=== PATIENT | female | born 1955 | race Caucasian/White ===

== ENCOUNTER → 2020-12-09 15:35 | Outpatient (CLI) | payer MEDICARE, OTHER, SELFPAY ==
--- NOTE | 2020-12-09 15:37 | DI.MRI.S_ITS ---
PROCEDURE: MR HEAD/BRAIN WO/W CON INDICATIONS: Follicular cyst of the skin and subcutaneous tissu TECHNIQUE: Noncontrast axial T1 spin echo, axial T2 fast spin echo, sagittal and axial FLAIR, coronal T2 fast spin echo, axial gradient echo, axial diffusion and ADC through the brain. After the administration of contrast, axial and coronal T1 spin echo with fat saturation through the brain. COMPARISON: None. FINDINGS: Image quality: Excellent. CSF spaces: Basal cisterns are patent. No extra-axial fluid collections. Ventricles are normal in size and shape. Brain: No midline shift. No intracranial bleeds or masses. No abnormal intracranial enhancement. There is cerebral volume loss for age. There is periventricular white matter chronic small vessel ischemic change. The brainstem appears normal. Diffusion-weighted images demonstrate no acute ischemic insults. No chronic ischemic insults. Normal intravascular flow voids are present. Skull and face: A superficial scalp lesion can be seen involving the right temporal region, as on series 7, image 15 measuring 17 mm. Moderate internal enhancement can be seen. Calvarial marrow is normal in signal. Orbits appear normal. Sinuses: Sinuses and mastoids appear clear. IMPRESSION: 17 mm right temporal scalp lesion, with moderate enhancement. Intracranial study within normal limits. Dictated by: Gurmeet Sharma M.D. on 12/09/2020 at 16:14 Approved by: Gurmeet Sharma M.D. on 12/09/2020 at 16:16
== END ==
PROVIDERS: PCP Family Medicine; Referring Provider Family Medicine; Visit Provider Family Medicine
DX: R51.9 Headache, unspecified (principal); L72.9 Follicular cyst of the skin and subcutaneous tissue, unspecified
CPT/HCPCS: 70553

== ENCOUNTER → 2022-09-13 09:57 | Outpatient (CLI) | payer MEDICARE, OTHER, SELFPAY | PROVIDERS: PCP Internal Medicine; Referring Provider Internal Medicine; Visit Provider Surgery | DX: S01.00XA Unspecified open wound of scalp, initial encounter (principal); L85.9 Epidermal thickening, unspecified; L53.9 Erythematous condition, unspecified | CPT/HCPCS: 11042; 87070; 87075; 87205; 99204; 99213 ==

== ENCOUNTER → 2022-09-20 15:04 | Outpatient (CLI) | payer MEDICARE, OTHER, SELFPAY | PROVIDERS: PCP Internal Medicine; Referring Provider Internal Medicine; Visit Provider Surgery | DX: T81.30XS Disruption of wound, unspecified, sequela (principal); S01.00XA Unspecified open wound of scalp, initial encounter; L72.0 Epidermal cyst | CPT/HCPCS: 11042 ==

== ENCOUNTER → 2022-09-25 13:12 | Outpatient (CLI) | payer MEDICARE, OTHER, SELFPAY | PROVIDERS: PCP Internal Medicine; Referring Provider Internal Medicine; Visit Provider Surgery | DX: T81.30XS Disruption of wound, unspecified, sequela (principal); S01.00XA Unspecified open wound of scalp, initial encounter; L72.0 Epidermal cyst | CPT/HCPCS: 11042 ==

== ENCOUNTER → 2022-10-02 13:45 | Outpatient (CLI) | payer MEDICARE, OTHER, SELFPAY | PROVIDERS: PCP Internal Medicine; Referring Provider Internal Medicine; Visit Provider Surgery | DX: S01.00XA Unspecified open wound of scalp, initial encounter (principal); L72.0 Epidermal cyst | CPT/HCPCS: 11042 ==

== ENCOUNTER → 2022-10-16 13:54 | Outpatient (CLI) | payer MEDICARE, OTHER, SELFPAY | PROVIDERS: PCP Internal Medicine; Referring Provider Internal Medicine; Visit Provider Surgery | DX: S01.00XA Unspecified open wound of scalp, initial encounter (principal); L72.0 Epidermal cyst | CPT/HCPCS: 97597; 99212; 99213 ==

== ENCOUNTER → 2022-10-31 14:32 | Outpatient (CLI) | payer MEDICARE, OTHER, SELFPAY | PROVIDERS: PCP Internal Medicine; Referring Provider Internal Medicine; Visit Provider Surgery | DX: T81.30XS Disruption of wound, unspecified, sequela (principal); S01.80XA Unspecified open wound of other part of head, initial encounter; L72.0 Epidermal cyst | CPT/HCPCS: 97597 ==

== ENCOUNTER → 2022-11-14 15:19 | Outpatient (CLI) | payer MEDICARE, OTHER, SELFPAY | PROVIDERS: PCP Internal Medicine; Referring Provider Internal Medicine; Visit Provider Surgery | DX: T81.31XA Disruption of external operation (surgical) wound, not elsewhere classified, initial encounter (principal); S01.00XA Unspecified open wound of scalp, initial encounter; L72.0 Epidermal cyst | CPT/HCPCS: 99213 ==

== ENCOUNTER → 2022-12-05 13:15 | Outpatient (CLI) | payer MEDICARE, OTHER, SELFPAY | PROVIDERS: PCP Internal Medicine; Referring Provider Internal Medicine; Visit Provider Surgery | DX: S01.00XA Unspecified open wound of scalp, initial encounter (principal); L72.0 Epidermal cyst | CPT/HCPCS: 11042 ==

== ENCOUNTER → 2022-12-25 13:42 | Outpatient (CLI) | payer MEDICARE, OTHER, SELFPAY | PROVIDERS: PCP Internal Medicine; Referring Provider Internal Medicine; Visit Provider Surgery | DX: L72.0 Epidermal cyst (principal) | CPT/HCPCS: 99212; 99213 ==

== ENCOUNTER 2024-05-09 12:36 | Emergency (ER) | payer MEDICARE, OTHER, SELFPAY ==
[2024-05-09] VITALS (36 sets, daily range): BP systolic 110–162; BP diastolic 66–119; PULSE 52–75; RESP 14–30; TEMP 36.6; O2SAT 94–100; BMI 25.5
--- NOTE | 2024-05-09 13:02 | DI.RAD.S_ITS ---
PROCEDURE: XR ANKLE RT 2V INDICATIONS: GLF w/ deformity at home, in EMS splint TECHNIQUE: 3 views of the ankle were acquired. COMPARISON: None. FINDINGS: Bones: Oblique intra-articular distal fibular fracture without displacement. Minimal widening of the lateral ankle mortise Soft tissues: No tibiotalar joint effusion. Achilles tendon appears normal. IMPRESSION: Nondisplaced oblique distal fibular fracture Approved by: Milton Mackay M.D. on 05/09/2024 at 12:50
[2024-05-09] MEDS: KETOROLAC 30 MG/ML VIAL 15 MG IV (13:13)
--- NOTE | 2024-05-09 15:24 | ED_ITS ---
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 She has had multiple allergies and reactions to many eyedrops. He was recently started on drozolamide- timolol that is preservative free, she started that a couple days ago but then started having reaction to it. Her provider is aware she is also on prednisone ophthalmic drops as well. Today she stood up to brush her teeth she had headache she felt dizzy and fell and hurt her ankle. She says this is not abnormal for her to have headache dizziness and eye pain. This is been ongoing since 2017. She has had multiple reactions to medications However this is the 1st time she has had serious injury due to headache and eye pain. She is very emotional and frustrated that no one can help her eye She denies any other injury no significant head injury consciousness no neck pain no numbness tingling or weakness. On anticoagulation Related Data Home Medications Medication Instructions Recorded Confirmed venlafaxine 75 mg tablet 75 mg PO DAILY 08/31/20 09/09/20 doxycycline hyclate 100 mg tablet 100 mg PO DAILY 09/01/20 09/09/20 Previous Rx's Medication Instructions Recorded clobetasol 0.05 % topical ointment 1 applic topical DAILY lichen 09/09/20 sclerosis #45 grams conjugated estrogens 0.625 mg/gram 0.625 mg vaginal DAILY 09/09/20 vaginal cream postmenopausal vaginal atrophy #30 grams hydrocodone 5 mg-acetaminophen 325 1 tab PO Q6H PRN pain #20 tabs 05/09/24 mg tablet ondansetron 4 mg disintegrating 4 mg PO Q8H PRN nausea and 05/09/24 tablet vomiting #10 tabs Allergies Allergy/AdvReac Type Severity Reaction Status Date / Time No Known Drug Allergies Allergy Unverified 09/11/20 10:45 Patient History Medical History (Updated 05/09/24 @ 17:50 by Chica Mayberry DO) Vision disorder Acne (~1971) Osteoarthritis (~2008) PTSD (post-traumatic stress disorder) (~1988) Anxiety and depression (~1989) Peripheral neuropathy (~2007) Migraines (~1976) Headache (~1976) Shoulder pain (~2007) Osteoporosis (~2008) Chronic back pain (~1989) Carpal tunnel syndrome (~1989) Measles (~1960) Chicken pox (~1961) Hearing loss (~1989) Glaucoma (~2016) Cataracts, bilateral (~2016) Partial blindness (~2016) Ovarian cyst (~1986) Endometriosis (~1995) History of urinary incontinence (~2017) Hemorrhoid (~1999) GI bleeding (~2010) GERD (gastroesophageal reflux disease) (~1999) Thyroid nodule (~2009) Surgical History Anesthesia Scalp cyst (~2019) History of removal of ovarian cyst (~1987) History of dilatation and curettage (~1978) Family History Father Cancer History of heart disease Hypertension History of coronary artery stent placement Mother Cancer Hypertension Hyperlipidemia Mental health problem Sister Diabetes mellitus History of heart disease Hypertension Hyperlipidemia Mental health problem Social History Smoking Status: Former smoker Smoking Status: Former smoker Substance Use Type: does not use Exam Initial Vital Signs Initial Vital Signs: Vital Signs Temperature 98 F 05/09/24 12:45 Pulse Rate 57 L 05/09/24 12:45 Respiratory Rate 18 05/09/24 12:45 Blood Pressure 126/98 H 05/09/24 12:45 Pulse Oximetry 98 05/09/24 12:45 Oxygen Delivery Method Room Air 05/09/24 12:45 GENERAL: Tearful 60-year-old female HEENT: Head atraumatic,EOMI, pupils reactive, right eye does home have some periorbital erythema face symmetric, CARDIOVASCULAR: Regular rate and rhythm without murmurs, rubs or gallops. RESPIRATORY: Breath sounds equal bilaterally, no wheezes rales or rhonchi. ABDOMEN: Soft, nontender. Normoactive bowel sounds all 4 quadrants. No guarding or rebound. EXTREMITIES: Normal range of motion, no clubbing or edema. Neurovascularly intact pelvis stable Right lower extremity tender and swollen on lateral malleoli distal pedal pulse intact able to move toes knee stable NEUROLOGICAL: Alert and oriented x4.Normal gait and speech. Moving all extremities SKIN: Warm, dry, no laceration, no petechiae, no rashes or lesions. Procedures Orthopedic Fracture Reduction Fracture #1: Side: right Fracture Reduction Location: tibia and fibula Analgesia: procedural sedation Technique: direct manipulation Orthopedic Splinting/Casting Injury #1: Side: right Lower Extremity Injury Location: ankle Lower Extremity Immobilizer: posterior splint and stirrup splint Post splinting neuro exam: intact Post splinting vascular exam: intact Placed by: Provider Procedural Sedation Consent signed: Yes Time out performed: Yes ASA Class: II Mallampati Airway Classification: Class II IV Propofol dose (mg): 75 Intraservice time/total sedation time (min): 15 ED Sedation Level: Moderate (Concious) Patient Tolerated Procedure: Well and No complications Complications: hypoventilation Course Orders Ordered: Discontinued Medications Hydrocodone Bitart/Acetaminophen (Hydrocodone/Acet 5/325 Prepack) 1 bottle MISC DIRECTED ONE Stop: 05/09/24 17:45 Last Admin: 05/09/24 17:58 Dose: 1 bottle Documented By: CASEY Ketorolac Tromethamine (Ketorolac 30 Mg/Ml Vial) 15 mg IV NOW ONE Stop: 05/09/24 13:11 Last Admin: 05/09/24 13:13 Dose: 15 mg Documented By: CASEY Morphine Sulfate (Morphine 2 Mg/Ml Inj) 2 mg IV NOW ONE Stop: 05/09/24 15:26 Last Admin: 05/09/24 15:42 Dose: 2 mg Documented By: CASEY Ondansetron HCl (Ondansetron 4 Mg/2 Ml Inj) 4 mg IV NOW ONE Stop: 05/09/24 15:26 Last Admin: 05/09/24 15:42 Dose: 4 mg Documented By: CASEY Ondansetron HCl (Ondansetron 4 Mg Odt Prepack) 1 bottle MISC DIRECTED ONE Stop: 05/09/24 17:45 Last Admin: 05/09/24 17:58 Dose: 1 bottle Documented By: CASEY Propofol (Propofol 200 Mg/20 Ml Vial) 75 mg 1 mg/kg (75 mg) IV NOW ONE Stop: 05/09/24 16:11 Last Admin: 05/09/24 16:20 Dose: 75 mg Documented By: RUBY Vital Signs Vital signs: Vital Signs - 8 hr 05/09/24 12:45 05/09/24 12:48 05/09/24 13:00 Temperature 98 F Pulse Rate 57 L 58 L 64 Respiratory Rate 18 20 Blood Pressure 126/98 H Pulse Oximetry 98 98 97 Oxygen Delivery Method Room Air Room Air 05/09/24 13:00 05/09/24 13:30 05/09/24 14:00 Temperature Pulse Rate 62 57 L Respiratory Rate 20 21 Blood Pressure 119/102 H Pulse Oximetry 97 97 Oxygen Delivery Method 05/09/24 14:00 05/09/24 14:30 05/09/24 14:31 Temperature Pulse Rate 60 Respiratory Rate 21 Blood Pressure 136/78 110/66 Pulse Oximetry 98 Oxygen Delivery Method 05/09/24 15:00 05/09/24 15:01 05/09/24 15:01 Temperature Pulse Rate 57 L 74 Respiratory Rate 22 Blood Pressure 153/111 H Pulse Oximetry 98 Oxygen Delivery Method 05/09/24 15:30 05/09/24 15:30 05/09/24 16:00 Temperature Pulse Rate 67 59 L Respiratory Rate 26 H 30 H Blood Pressure 149/108 H Pulse Oximetry 98 98 Oxygen Delivery Method Room Air 05/09/24 16:00 05/09/24 16:15 05/09/24 16:18 Temperature Pulse Rate 55 L 60 Respiratory Rate 14 24 Blood Pressure 132/70 133/75 Pulse Oximetry 98 Oxygen Delivery Method Room Air 05/09/24 16:23 05/09/24 16:27 05/09/24 16:27 Temperature Pulse Rate 69 59 L Respiratory Rate 24 27 H Blood Pressure 140/72 137/74 Pulse Oximetry 98 100 Oxygen Delivery Method Room Air 05/09/24 16:30 05/09/24 16:30 05/09/24 16:35 Temperature Pulse Rate 61 53 L Respiratory Rate 22 22 Blood Pressure 137/76 Pulse Oximetry 99 99 Oxygen Delivery Method Room Air Room Air 05/09/24 16:35 05/09/24 16:40 05/09/24 16:40 Temperature Pulse Rate 61 Respiratory Rate 21 Blood Pressure 162/76 H 146/66 H Pulse Oximetry 94 Oxygen Delivery Method 05/09/24 16:45 05/09/24 16:45 05/09/24 16:50 Temperature 98 F Pulse Rate 52 L 58 L Respiratory Rate 23 21 Blood Pressure 143/70 H 159/85 H Pulse Oximetry 97 98 Oxygen Delivery Method Room Air MDM - Fall Imaging Data Extremity x-ray #1: Radiologist's Impression: PROCEDURE: XR ANKLE RT 2V INDICATIONS: GLF w/ deformity at home, in EMS splint TECHNIQUE: 3 views of the ankle were acquired. COMPARISON: None. FINDINGS: Bones: Oblique intra-articular distal fibular fracture without displacement. Minimal widening of the lateral ankle mortise Soft tissues: No tibiotalar joint effusion. Achilles tendon appears normal. IMPRESSION: Nondisplaced oblique distal fibular fracture Extremity x-ray #2: Radiologist's Impression: PROCEDURE: XR ANKLE RT 2V INDICATIONS: SPLINT FOR R ANKLE FX/DEFORMITY TECHNIQUE: 3 views of the ankle were acquired. COMPARISON: [facility], , XR ANKLE RT 2V, 05/09/2024, 13:02. FINDINGS: Bones: Bimalleolar fracture in near anatomic alignment. Ankle mortise is now symmetric. Overlying fiberglass splint Soft tissues: No tibiotalar joint effusion. Achilles tendon appears normal. IMPRESSION: Bimalleolar fracture in near anatomic alignment and fiberglass splint Approved by: Milton Mackay M.D. on 05/09/2024 at 16:04 CT LE: Radiologist's Impression: PROCEDURE: CT LE LT W CON INDICATIONS: ankle fracture TECHNIQUE: Noncontrast 1-1.5 mm axial sections acquired from above the tibiotalar joint to the bottom of the calcaneus, with coronal and sagittal reformats. COMPARISON: None. FINDINGS: Vertical fracture through the posterior aspect of the distal tibial metaphysis with articular tibial talar involvement. Minimal displacement. Horizontal comminuted fracture through the medial malleolus with minimal displacement as well. Oblique intra-articular fracture of the distal fibula is present with minimal lateral displacement of the distal fracture fragment. Second fracture through the fibular tip. Fibular ossicle noted as well. Lateral subluxation of the talus relative to the tibia reflects ankle mortise disruption IMPRESSION: Trimalleolar fracture with ankle mortise disruption Approved by: Milton Mackay M.D. on 05/09/2024 at 17:47 MDM Narrative Medical decision making narrative: MDM CC: Right ankle injury Complicating co-morbidities: Chronic closed angle glaucoma with multiple reactions to medications Medical records reviewed: [facility] records reviewed. 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 Pertinent findings: None Imaging studies independently reviewed: 1st x-ray showed an isolated distal fibular fracture 2nd x-ray show bimalleolar fracture CT shows trimalleolar fracture Consultations: 17:05 [facility] has reviewed x-ray reports okay to follow-up outpatient she has placed her on scheduled for OR for next week. Nonweightbearing and elevation Treatments: Dilaudid, propofol Re-evaluations: Initially tried to splint patient with Dilaudid however during splinting ankle became extremely unstable and dislocated medially at that time decision was made for procedure sedation to get better aligned proper splint. Patient tolerated procedure well Discussion: Patient is 60-year-old female chronic angle glaucoma presents today with right ankle injury. It is found she has a trimalleolar fracture. Ultimately required procedure sedation for proper splinting and alignment. Orthopedics consulted agrees with outpatient follow-up has placed her on schedule for next week for surgery. Instructed patient and no weight bearing. To follow-up with orthopedics. They understand. All questions have been answered Discharge Plan Departure Patient Disposition: Home Clinical Impression: Ankle fracture Instructions: DI for Ankle Fracture Activity Restrictions/Additional Instructions: *You have been diagnosed with right ankle fracture *What to do: -no weight-bearing, use wheelchair crutches walker as needed -elevate and ice as often as possible recommend 3-4 pillows underneath your ankle *Continue to take medications as directed [place] 1 tablet every 4-6 hours if needed for severe pain Zofran 4 mg every 8 hours if needed for nausea or vomiting *Follow up with your primary care provider in 2-3 days or call [phone] Please call he follow-up with Dr. Walton who is aware of your situation, he will likely get surgery on Saturday *Return to ER if you should have increasing pain inability to move toess [or] any new, worsening or concerning symptoms CONTROLLED SUBSTANCE DISCHARGE (Narcotoic/benzodiazepine/Flexeril/Phenergan) 1. You have been prescribed narcotic medications, it does have acetaminophen/Tylenol/paracetamol in it, DO NOT TAKE MORE THAN 4,00mg in 24 hours of Tylenol. TRAMADOL DOES NOT CONTAIN TYLENOL 2. Please understand that we cannot provide further refills of narcotics, benzodiazepines or controlled substances through the ED and her pain management will need to be through your provider. 3. While on these medications you cannot drive or operate heavy machinery. 4. You cannot sign legal documents or perform any duties such as this. 5. As long as you're taking opiate pain medications he should also be taking a stool softener such as Colace, Dulcolax, MiraLAX or prune juice, to help avoid constipation. Prescriptions: New hydrocodone-acetaminophen 5-325 mg tablet 1 tab PO Q6H PRN (Reason: pain) Qty: 20 0RF ondansetron 4 mg tablet,disintegrating 4 mg PO Q8H PRN (Reason: nausea and vomiting) Qty: 10 0RF No Action doxycycline hyclate 100 mg tablet 100 mg PO DAILY venlafaxine 75 mg tablet 75 mg PO DAILY clobetasol 0.05 % ointment 1 applic topical DAILY Qty: 45 2RF Rx Instructions: Apply to vulva daily for 4 weeks, then 2x weekly conjugated estrogens 0.625 mg/gram cream 0.625 mg vaginal DAILY Qty: 30 2RF Rx Instructions: Apply daily for 14 days, then 2x weekly. Referrals: Amol Campos MD [Primary Care Provider] - Stand Alone Forms: Patient Portal/API
[2024-05-09] MEDS: MORPHINE 2 MG/ML INJ IV (15:42)
[2024-05-09] MEDS: ONDANSETRON 4 MG/2 ML INJ IV (15:42)
[2024-05-09] MEDS: propofoL 200 MG/20 ML VIAL 75 MG IV (16:20)
--- NOTE | 2024-05-09 16:23 | DI.RAD.S_ITS ---
PROCEDURE: XR ANKLE RT 2V INDICATIONS: SPLINT FOR R ANKLE FX/DEFORMITY TECHNIQUE: 3 views of the ankle were acquired. COMPARISON: [facility], CR, XR ANKLE RT 2V, 05/09/2024, 13:02. FINDINGS: Bones: Bimalleolar fracture in near anatomic alignment. Ankle mortise is now symmetric. Overlying fiberglass splint Soft tissues: No tibiotalar joint effusion. Achilles tendon appears normal. IMPRESSION: Bimalleolar fracture in near anatomic alignment and fiberglass splint Approved by: Milton Mackay M.D. on 05/09/2024 at 16:04
--- NOTE | 2024-05-09 17:06 | DI.CT.S_ITS ---
PROCEDURE: CT LE LT W CON INDICATIONS: ankle fracture TECHNIQUE: Noncontrast 1-1.5 mm axial sections acquired from above the tibiotalar joint to the bottom of the calcaneus, with coronal and sagittal reformats. COMPARISON: None. FINDINGS: Vertical fracture through the posterior aspect of the distal tibial metaphysis with articular tibial talar involvement. Minimal displacement. Horizontal comminuted fracture through the medial malleolus with minimal displacement as well. Oblique intra-articular fracture of the distal fibula is present with minimal lateral displacement of the distal fracture fragment. Second fracture through the fibular tip. Fibular ossicle noted as well. Lateral subluxation of the talus relative to the tibia reflects ankle mortise disruption IMPRESSION: Trimalleolar fracture with ankle mortise disruption Approved by: Milton Mackay M.D. on 05/09/2024 at 17:47
[2024-05-09] MEDS: HYDROCODONE/ACET 5/325 PREPACK 1 BOTTLE MISC (17:58)
[2024-05-09] MEDS: ONDANSETRON 4 MG ODT PREPACK 1 BOTTLE MISC (17:58)
== END 2024-05-09 18:05 | disposition home or self-care (01) ==
PROVIDERS: Emergency Provider Emergency Medicine; PCP Internal Medicine
DX: S82.61XA Displaced fracture of lateral malleolus of right fibula, initial encounter for closed fracture (principal); W18.30XA Fall on same level, unspecified, initial encounter
CPT/HCPCS: 27752; 73600; 73700; 96374; 96375; 99152; 99284; J1885; J2270; J2405; J2704

== ENCOUNTER 2024-05-13 13:33 | Day surgery (SDC) | payer MEDICARE, OTHER, SELFPAY ==
[2024-05-13] VITALS (8 sets, daily range): BP systolic 116–144; BP diastolic 69–90; PULSE 60–731; RESP 10–18; TEMP 36.1–36.6; O2SAT 95–99; BMI 25.7
--- NOTE | 2024-05-13 | DI.RAD.S_ITS ---
PROCEDURE: XR ANKLE RT 2V INDICATIONS: Trimalleolar ankle fracture TECHNIQUE: 3 views of the ankle were acquired. COMPARISON: [facility], , XR ANKLE RT 2V, 05/09/2024, 16:22. FINDINGS: Bones: Interoperative film shows new lateral plate and screws transfixing lateral malleolar fracture- anatomic alignment noted. New hooked plate transfixes medial malleolar fracture with anatomic alignment. There has also been interosseous membrane stabilization by screw Tibiotalar and talocalcaneal joints: Normal in width and alignment without arthritic change. Soft tissues: No soft tissue swelling, calcification or mass. IMPRESSION: ORIF lateral malleolar and medial malleolar fractures in anatomic alignment Dictated by: Elder Priest M.D. on 05/14/2024 at 9:47 Approved by: Elder Priest M.D. on 05/14/2024 at 9:48
[2024-05-13] MEDS: ACETAMINOPHEN 325 MG TABLET 975 MG PO (14:35)
[2024-05-13] MEDS: LACTATED RINGERS 1,000 ML 42 ML IV ×2 (14:35→16:49)
--- NOTE | 2024-05-13 15:15 | P.HP_ITS ---
History of Present Illness History of Present Illness Date Patient Seen: 05/13/24 Time Patient Seen: 15:16 Date of Onset of Symptoms: 05/09/24 Chief complaint: L ankle Narrative: 68-year-old female with a glaucoma had a ground level fall on May 09, 2024 and sustained a right ankle fracture dislocation. This was a closed injury. She was evaluated [facility] reduced and placed into a splint. She was indicated for open reduction internal fixation. She lives at home with her who helps her. She typically does not use any assistive devices. Denies any previous injury to her ankle. Does note a bruise on her left knee sustained during the fall. Denies any fevers chills nausea or vomiting. No medication allergies. Has felt like the splint was tight. No personal or family history of blood clots [facility] Medical History Closed angle glaucoma Vision disorder Acne (~1971) Osteoarthritis (~2008) PTSD (post-traumatic stress disorder) (~1988) Anxiety and depression (~1989) Peripheral neuropathy (~2007) Migraines (~1976) Headache (~1976) Shoulder pain (~2007) Osteoporosis (~2008) Chronic back pain (~1989) Carpal tunnel syndrome (~1989) Measles (~1960) Chicken pox (~1961) Hearing loss (~1989) Glaucoma (~2016) Cataracts, bilateral (~2016) Partial blindness (~2016) Ovarian cyst (~1986) Endometriosis (~1995) History of urinary incontinence (~2017) Hemorrhoid (~1999) GI bleeding (~2010) GERD (gastroesophageal reflux disease) (~1999) Thyroid nodule (~2009) Surgical History Anesthesia Scalp cyst (~2019) History of removal of ovarian cyst (~1987) History of dilatation and curettage (~1978) Family History Father Cancer History of heart disease Hypertension History of coronary artery stent placement Mother Cancer Hypertension Hyperlipidemia Mental health problem Sister Diabetes mellitus History of heart disease Hypertension Hyperlipidemia Mental health problem Social History household members: spouse Smoking Status: Former smoker alcohol intake: former Meds Home Medications and Allergies Home Medications Medication Instructions Recorded Confirmed Type venlafaxine 75 mg tablet 75 mg PO DAILY 08/31/20 05/13/24 History clobetasol 0.05 % topical ointment 1 applic topical DAILY lichen 09/09/20 09/09/20 Rx sclerosis #45 grams conjugated estrogens 0.625 mg/gram 0.625 mg vaginal DAILY 09/09/20 09/09/20 Rx vaginal cream postmenopausal vaginal atrophy #30 grams hydrocodone 5 mg-acetaminophen 325 1 tab PO Q6H PRN pain #20 tabs 05/09/24 05/13/24 Rx mg tablet ondansetron 4 mg disintegrating 4 mg PO Q8H PRN nausea and 05/09/24 05/13/24 Rx tablet vomiting #10 tabs timolol maleate 0.5 % eye drops drp EYE-BOTH 05/13/24 History valacyclovir 1 gram tablet 1,000 mg PO 3XD 05/13/24 05/13/24 History Allergies Allergy/AdvReac Type Severity Reaction Status Date / Time No Known Drug Allergies Allergy Verified 05/13/24 13:52 Review of Systems Review of Systems Narrative: Glaucoma ROS: Yes All systems reviewed with the patient and are negative except as otherwise documented Exam Vital Signs (past 8 hours): - 05/13/24 13:59 Temperature 97.8 F Pulse Rate 60 Respiratory Rate 18 Blood Pressure 116/81 Pulse Oximetry 95 Oxygen Delivery Method Room Air Oxygen Delivery Method Room Air Narrative Exam Narrative: Alert and oriented female in no acute distress Heart regular rate and rhythm Lungs clear to auscultation bilaterally Left lower extremity with some bruise over patella. Straight leg raise intact. No effusion. Right lower extremity with splint in place this is loosened to demonstrate ecchymosis mild swelling. No erythema. Wiggles toes. Knees benign without e ffusion. Remainder of exam deferred due to known trimalleolar ankle fracture dislocation. Brisk capillary refill. Palpable dorsalis pedis pulse Objective Imaging Right ankle CT scan : My impression: Trimalleolar ankle fracture dislocation, right Assessment & Plan Assessment and plan (1) Ankle fracture: Qualifiers: Encounter type: initial encounter Fracture type: closed Laterality: right Qualified Code(s): S82.891A - Other fracture of right lower leg, initial encounter for closed fracture Status: Acute Plan Right trimalleolar ankle fracture dislocation. Indication for surgery unstable ankle fracture. The risks and benefits of the procedure have been discussed with the patient and given the opportunity to ask questions. The risks of surgery include but are no t limited to infection, malunion, nonunion, persistence of pain, damage to nerves and blood vessels, posttraumatic arthritis, DVT, PE, cardiopulmonary complications and . The patient expressed a thorough understanding of the risks and benefits of surgery and has elected to proceed. Consent was signed Discussed specific risks for posttraumatic arthritis hardware failure. Discussed the importance of nonweightbearing for 6 weeks postop. The patient understands and agrees with the plan. Decision for surgery. Time-Based Coding :: [TOTAL MINUTES] spent with patient and on the chart (including review of chart, obtaining history, exam, reviewing outside data, placing orders, documenting exam and treatment plan, and counseling patient) on [DATE].
--- NOTE | 2024-05-13 15:54 | PM.OP.1 ---
Operative Date/Time/Diagnoses Date of procedure: 05/13/24 Time of procedure: 16:00 Pre-op diagnosis: Right trimalleolar ankle fracture Post-op diagnosis: same Procedure & Clinicians Procedure: Open reduction internal fixation trimalleolar ankle fracture without posterior lip CPT code [id number] syndesmosis right ankle CPT code 93159 Same procedure as scheduled: Yes Indications: The patient is a 60-year-old female that had a fall and sustained a right ankle fracture dislocation. This is an unstable trimalleolar fracture dislocation. She was indicated for open reduction internal fixation During the operation, the services of a physician cardiovascular surgical tech were medically indicated and necessary to provide the exposure of the operative site for the surgical procedure and to maintain the limb in a proper position to carry out the operation safely and efficiently. Without a qualified pediatric physician assistant being present this would extended the operative procedure and made the procedure technically more difficult to perform. Surgeon: Vidhi Walton Tetryl Wringer Operator: Ritu Bettencourt Anesthesia Type: General, Peripheral nerve block and Local Operative Notes Findings: Displaced comminuted medial malleolar fracture oblique distal fibula fracture. Posterior malleolar fracture. Closure Type: primary Specimen(s): none sent Prosthetic devices, grafts, tissues, transplants, or devices: Arthrex medial hook plate locking and nonlocking screws Arthrex 7 hole 1/3 tubular locking plate with locking and nonlocking screws Syndesmosis was fixed with 14.0 cancellous screw Applied: other (splint) Estimated Blood Loss (mL): 30 Tourniquet time (min): 60 Procedure in detail: The patient was seen in the preoperative area the site of surgery marked informed consent confirmed this was the right ankle. The patient was brought to the operating room by the anesthesia team. A peripheral nerve block had been placed for postoperative pain control. The patient was positioned on the table. A well-padded thigh tourniquet was applied. Bony prominences were well padded. An SCD was placed on the contralateral lower extremity. The right lower extremity was prepped and draped in standard sterile fashion formal time-out procedure was performed confirming the patient's side and site of surgery administration of appropriate preoperative antibiotic. All were in agreement. Attention was turned to the right lower extremity Esmarch was used for exsanguination and tourniquet raised to the thigh to 250 mm Hg. Incision was made medially along the medial malleolus care was taken to protect the saphenous neurovascular bundle. The distal comminuted medial malleolar fracture was identified fracture was cleaned irrigated and reduced and held in place with K-wires. A hook plate from the Arthrex set was selected this was impacted into place anatomically reducing the medial malleolus fracture which was in 2 separate pieces. And screws were placed in the standard fashion. Once this was confirmed attention was then turned to the lateral malleolus at separate incision was made along the posterior border of the fibula this was taken down through the skin subcutaneous tissues the peroneal tendons were retracted posteriorly. The fibula fracture was identified and cleaned using curette and a scalpel blade. This was then reduced with a reduction clamp and a 1/3 tubular plate from the Arthrex set was positioned in an antiglide fashion. Screws were placed nonlocking proximally and locking distally to reduce prominence. There was a noted syndesmotic disruption and a posterior malleolus fracture. The posterior malleolus fracture was small and treated non operatively. The syndesmosis was reduced with thumb pressure pinned and then fixed with 1 Arthrex 4.0 cancellous screw Final fluoroscopic x-rays were taken AP mortise and lateral planes confirming anatomic alignment of the ankle joint. The tourniquet was released hemostasis was achieved. Wounds were closed with 2-0 Vicryl 4-0 Monocryl and 3-0 nylon suture. A well-padded posterior and U splint was applied in neutral dorsiflexion. The patient was awoken from anesthetic and taken to the recovery unit in good condition there no immediate complications for this procedure. Counts were correct. Complications: none Post-operative Condition: stable Disposition: PACU Plan for aftercare: Nonweightbearing x6 weeks. Sutures remain in place 2-3 weeks. Once these are appropriate they may be removed and the patient will go into a boot. She will remain nonweightbearing for 6 weeks then start progressive weight-bearing in the boot. She will use aspirin 325 mg daily for 6 weeks for DVT prophylaxis. We will start physical therapy about 6 weeks when she starts weight-bearing. After her 1st postoperative visit may come out of the boot 2 to 3 times a day for gentle ankle dorsiflexion plantar flexion and for bathing otherwise utilize boot.
[2024-05-13] MEDS: CEFAZOLIN 2 GM/100 ML PREMIX 100 ML IV (16:00)
--- NOTE | 2024-05-13 16:11 | SUR.OPER ---
Supine on padded OR bed, head on pillow, arms secured on padded arm boards at <90 degrees abduction, legs uncrossed, safety belt at thigh, tape over blanket over lower legs. blankets under right hip and right leg.
[2024-05-13 17:15] LABS: Base Excess ABG 2.4 mmol/L (-2-3); HCO3 ABG 30 mmol/L (23-27); Oxygen Saturation ABG 100 % (95-100); PO2 ABG 259 mmHg (80-100); TCO2 ABG 31 mmol/L (23-27)
[2024-05-13] MEDS: ONDANSETRON 4 MG/2 ML INJ IV ×2 (18:04→19:10)
[2024-05-13] MEDS: OXYCODONE IR 5 MG TABLET PO ×2 (18:04→18:22)
--- NOTE | 2024-05-13 18:16 | SUR.PHASEI ---
Pt stated she felt like it was crushing. Ritu VINSON here to evaluate.
[2024-05-13] MEDS: HYDROMORPHONE 1 MG INJ IV (18:20)
[2024-05-13 18:31] LABS: PCO2 ABG 61.5 mmHg (35-45)
--- NOTE | 2024-05-14 13:44 | SUR.PREOP ---
Late Entry. See anesth papers for Block start time, time out and time start . Monitoring initiated and maintained throughout procedure. Oxygen and medications given by anesthesiologist instructions. Patient remained stable throughout procedure, no adverse reactions noted.
== END 2024-05-13 19:20 | disposition home or self-care (01) ==
PROVIDERS: PCP Internal Medicine; Referring Provider Orthopaedic Surgery Foot and Ankle Surgery; Visit Provider Orthopaedic Surgery Foot and Ankle Surgery
PROC: (CPT 27822; principal; 2024-05-13 15:00)
DX: S82.852A Displaced trimalleolar fracture of left lower leg, initial encounter for closed fracture (principal); S93.432A Sprain of tibiofibular ligament of left ankle, initial encounter; W19.XXXA Unspecified fall, initial encounter; H40.9 Unspecified glaucoma
CPT/HCPCS: 27822; 27829; 36600; 64450; 73600; 76000; C1713; J0690; J1100; J1171; J1885; J2405; J2704; J3010